=== PATIENT | female | born 1950 | race Caucasian/White ===

== ENCOUNTER 2020-11-02 13:40 | Emergency (ER) | payer MEDICARE ==
[~2020-11-02] VITALS: Ht 167.6 cm; Wt 118.4 kg
[2020-11-02] MEDS ORDERED: ASPIRIN 81 MG TABLET CHEW PO ONE (14:00)
[2020-11-02] MEDS ORDERED: ASPIRIN 81 MG TABLET CHEW ONE (14:21)
[2020-11-02 14:26] LABS: BASOPHILS % (AUTO) 1 % (0-1); EOSINOPHILS % (AUTO) 3 % (1-7); LYMPHOCYTES % (AUTO) 21 % (22-44); MEAN CORPUSCULAR HEMOGLOBIN 34.3 pg (27.0-34.8); MEAN CORPUSCULAR HGB CONC 33.5 g/dL (32.4-35.8); MEAN PLATELET VOLUME 7.9 fL (7.4-10.4); MONOCYTES % (AUTO) 9 % (2-9); NEUTROPHILS % (AUTO) 66 % (42-75); PLATELET COUNT 212 x10^3/uL (130-400); RED BLOOD COUNT 3.84 x10^6/uL (3.82-5.3); RED CELL DISTRIBUTION WIDTH 13.4 % (9.6-15.2)
[2020-11-02 14:37] LABS: ALANINE AMINOTRANSFERASE 31 U/L (12-78); ALBUMIN 3.4 g/dL (3.4-5.0); ANION GAP 7 mmol/L (5-15); CALCIUM 8.4 mg/dL (8.5-10.1); CHLORIDE 109 mmol/L (98-107); CREATININE 0.89 mg/dL (0.55-1.02)
[2020-11-02 14:41] LABS: ALKALINE PHOSPHATASE 92 U/L (45-117); BILIRUBIN,TOTAL 0.4 mg/dL (0.2-1.0); TOTAL PROTEIN 6.8 g/dL (6.4-8.2); TROPONIN I < 0.015 ng/mL (0.000-0.045)
[2020-11-02] MEDS ORDERED: SODIUM CHLORIDE FLUSH 10ML SYR IVF ONE (15:00)
--- NOTE | 2020-11-02 15:25 | NUR ---
PT TAKEN TO CT. NAD NOTED AT THIS TIME.
[2020-11-02] MEDS ORDERED: OMNIPAQUE 350 MG/ML, 100ML BOTTLE ONE (15:44)
--- NOTE | 2020-11-02 15:54 | NUR ---
PT AMBULATES WELL TO BATHROOM INDEPENDENTLY FOR UA SPECIMEN COLLECTION.
[2020-11-02 16:22] LABS: MICROSCOPIC NOT IND
--- NOTE | 2020-11-02 17:17 | NUR ---
TASK RN. PT D/C'D PER ORDERS. PT REQUESTED CD FROM CT, CT AWARE, WILL BRING TO PT AT D/C DESK.
[2020-11-02 17:22] VITALS: BP 147/90
== END 2020-11-02 17:33 | disposition home or self-care (01) ==
LOC: ED 14:10
DX: R07.89 Other chest pain (principal); R06.00 Dyspnea, unspecified; M25.512 Pain in left shoulder; R10.84 Generalized abdominal pain; R94.31 Abnormal electrocardiogram [ECG] [EKG]
CPT/HCPCS: 36415; 71045; 74177; 80053; 81003; 83605; 83690; 83880; 84484; 85025; 93005; 99285; Q9967